=== PATIENT | male | born 1970 | race Caucasian/White ===

== ENCOUNTER 2016-10-30 20:19 | Observation (INO) | payer OTHER ==
[2016-10-30] MEDS ORDERED: ONDANSETRON 4 MG/2 ML VIAL IVP STA (20:47)
[2016-10-30] MEDS ORDERED: AMPICILLIN-SULBACTAM 3 GM in SODIUM CHLORIDE 0.9% 100 ML IVPB STA (20:47)
[2016-10-30] MEDS ORDERED: HYDROmorphone 1 MG/ML 1 ML SYRINGE IVP STA (20:47)
[2016-10-30] MEDS ORDERED: SODIUM CHLORIDE 0.9% 1,000 ML IV STA ×2 (20:47)
--- NOTE | 2016-10-30 20:59 | ED ---
General Adult HPI - General Chief complaint: Headache Stated complaint: PO Sinus surgery fever Time Seen by Provider: 10/30/16 20:38 Source: patient, family, RN notes reviewed Mode of arrival: ambulatory Limitations: no limitations - History of Present Illness Initial comments: Chief complaint and history of present illness this is a 46-year-old male here for complaint of the pain and fever. Yesterday he had nasal surgery with septoplasty and sinus surgery. He has nasal plugs in place. Reports that he had a fever last night several hours after the surgery. His not being able to control the pain with provided oral pain medications, current temperature 101.2. - Related Data Allergies Allergy/AdvReac Type Severity Reaction Status Date / Time No Known Allergies Allergy Verified 10/30/16 20:29 Review of Systems ROS Statement: Those systems with pertinent positive or pertinent negative responses have been documented in the HPI. Review of systems. Patient has frontal and maxillary sinus pain and pressure. Patient had surgery on his nose and sinuses 36 hours ago. Currently complaining of pain and fever. Unable to eat or drink. Nausea. No vomiting. All systems are reviewed. Patient denies any serious past medical problems. Sinus surgery just yesterday morning. Family history no cancers. Patient is nonsmoker nondrinker. Denies any ALLERGIES. ROS Other: All systems not noted in ROS Statement are negative. Past Medical History Past Medical History: No Reported History History of Any Multi-Drug Resistant Organisms: None Reported Additional Past Surgical History / Comment(s): sinus surgery Past Psychological History: No Psychological Hx Reported Smoking Status: Never smoker Past Alcohol Use History: None Reported Past Drug Use History: None Reported General Exam - General Exam Comments Initial Comments: General: The patient is awake and alert, moderate distress because of pain from the sinus surgery plus fever 101.2. Vital signs temp 11.2 pulse 103 respiratory rate 20 pulse ox 94% room air blood pressure 135/81. Elevated systolic due to pain Eye: Patient's eyes are tearing. Complaining of pain from recent nasal, sinus surgery. Ears, nose, mouth and throat: There are moist mucous membranes . Patient has nasal tampons in place after surgery. Small amount of blood still coming from the nares. Neck: The neck is supple, there is no tenderness Cardiovascular: Tachycardic heart rate 103.. No murmur, rub or gallop is appreciated. Respiratory: Lungs are clear to auscultation, respirations are non-labored, breath sounds are equal. No wheezes, stridor, rales, or rhonchi. Gastrointestinal: Poor appetite. Nausea no vomiting. No bowel movement. Back: No complaint of back pain. Musculoskeletal: Upper or lower extremities without complaint. Neurological: No complaint of any neuro deficits. Skin: Skin is warm and dry and no rashes or lesions are noted. Limitations: no limitations Course Vital Signs 10/30/16 20:24 Temperature 101.2 F H Pulse Rate 103 H Respiratory 20 Rate Blood Pressure 135/81 O2 Sat by Pulse 94 L Oximetry Medical Decision Making - Medical Decision Making Dr. Pagan came emergency room saw the patient. He removed the nasal tampons. Patient states she is feeling somewhat better. Awaiting final results of labs Labs show white count of 18 hemoglobin 15 hematocrit 43, flu is negative. Potassium is 4.2 BUN 10 creatinine 0.8 with a GFR greater than 60. Glucose 154 The patient will be admitted to the hospital for further management and IV antibiotics. - Lab Data Result diagrams: 10/30/16 21:00 10/30/16 21:00 Lab Results 10/30/16 10/30/16 10/30/16 Range/Units 21:00 21:00 21:00 WBC 18.0 H (3.8-10.6) k/uL RBC 4.64 (4.30-5.90) m/uL Hgb 15.1 (13.0-17.5) gm/dL Hct 43.6 (39.0-53.0) % MCV 94.0 (80.0-100.0) fL MCH 32.6 (25.0-35.0) pg MCHC 34.7 (31.0-37.0) g/dL RDW 12.9 (11.5-15.5) % Plt Count 188 (150-450) k/uL Neutrophils % 88 % Lymphocytes % 5 % Monocytes % 6 % Eosinophils % 1 % Basophils % 0 % Neutrophils # 15.8 H (1.3-7.7) k/uL Lymphocytes # 0.8 L (1.0-4.8) k/uL Monocytes # 1.1 H (0-1.0) k/uL Eosinophils # 0.1 (0-0.7) k/uL Basophils # 0.1 (0-0.2) k/uL Sodium 139 (137-145) mmol/L Potassium 4.2 (3.5-5.1) mmol/L Chloride 98 (98-107) mmol/L Carbon Dioxide 28 (22-30) mmol/L Anion Gap 13 mmol/L BUN 10 (9-20) mg/dL Creatinine 0.80 (0.66-1.25) mg/dL Est GFR (MDRD) Af Amer >60 (>60 ml/min/1.73 sqM) Est GFR (MDRD) Non-Af >60 (>60 ml/min/1.73 sqM) Glucose 154 H (74-99) mg/dL Calcium 9.7 (8.4-10.2) mg/dL Total Bilirubin 1.2 (0.2-1.3) mg/dL AST 19 (17-59) U/L ALT 39 (21-72) U/L Alkaline Phosphatase 92 (38-126) U/L Total Protein 8.1 (6.3-8.2) g/dL Albumin 4.7 (3.5-5.0) g/dL Influenza Type A RNA Not Detected (Not Detectd) Influenza Type B (PCR) Not Detected (Not Detectd) Disposition Clinical Impression: Sinusitis, acute Disposition: ADMITTED IP TO THIS HOSP Condition: Fair
[2016-10-30 21:35] LABS: Basophils # (A) 0.1 k/uL (0-0.2); Basophils % (A) 0 %; CH 32.5; CHCM 34.7; Eosinophils # (A) 0.1 k/uL (0-0.7); Eosinophils % (A) 1 %; HCT 43.6 % (39.0-53.0); HDW 2.44; HGB 15.1 gm/dL (13.0-17.5); Luc # (Auto) 0.14; Luc % (Auto) 1; Lymphocytes # (A) 0.8 k/uL (1.0-4.8); Lymphocytes % (A) 5 %; MCH 32.6 pg (25.0-35.0); MCHC 34.7 g/dL (31.0-37.0); Mean Platelet Volume 8.7; Monocytes # (A) 1.1 k/uL (0-1.0); Monocytes % (A) 6 %; Neutrophils # (A) 15.8 k/uL (1.3-7.7); Neutrophils % (A) 88 %; RBC 4.64 m/uL (4.30-5.90); RDW 12.9 % (11.5-15.5); WBC (Perox) 18.57
[2016-10-30 21:46] LABS: ALT 39 U/L (21-72); AST 19 U/L (17-59); Alkaline Phosphatase 92 U/L (38-126); Anion Gap 13 mmol/L; Blood Urea Nitrogen 10 mg/dL (9-20); Calcium 9.7 mg/dL (8.4-10.2); Carbon Dioxide 28 mmol/L (22-30); Chloride 98 mmol/L (98-107); Glucose 154 mg/dL (74-99); Non-African American GFR(MDRD) >60 (>60 ml/min/1.73 sqM); Potassium 4.2 mmol/L (3.5-5.1); Sodium 139 mmol/L (137-145); Total Bilirubin 1.2 mg/dL (0.2-1.3); Total Protein 8.1 g/dL (6.3-8.2)
[2016-10-30] MEDS ORDERED: NALOXONE 0.4 MG/ML 1 ML VIAL IV PRN (22:12)
[2016-10-30] MEDS ORDERED: ONDANSETRON 4 MG/2 ML VIAL IVP PRN (22:12)
[2016-10-30 22:23] VITALS: RESP 18
[2016-10-30] MEDS: ACETAMINOPHEN TAB 325 MG TAB PO PRN (22:33)
[2016-10-31] MEDS: HYDROmorphone 1 MG/ML 1 ML SYRINGE IV PRN ×2 (01:32→08:09)
[2016-10-31] MEDS: AMPICILLIN-SULBACTAM 1.5 GM in SODIUM CHLORIDE 0.9% 50 ML IVPB SCH ×2 (01:33→08:08)
[2016-10-31 02:11] VITALS: BMI 32.5
[2016-10-31 04:54] VITALS: TEMP 98.7
[2016-10-31 07:11] LABS: Basophils % (A) 0 %; CH 32.2; CHCM 33.3; Eosinophils % (A) 0 %; HCT 43.3 % (39.0-53.0); HDW 2.38; Luc # (Auto) 0.15; Luc % (Auto) 1; Lymphocytes % (A) 7 %; MCH 31.3 pg (25.0-35.0); MCHC 32.3 g/dL (31.0-37.0); Mean Platelet Volume 8.2; Monocytes # (A) 1.1 k/uL (0-1.0); Monocytes % (A) 8 %; Neutrophils # (A) 11.2 k/uL (1.3-7.7); Neutrophils % (A) 83 %; RBC 4.47 m/uL (4.30-5.90); RDW 12.9 % (11.5-15.5); WBC 13.5 k/uL (3.8-10.6); WBC (Perox) 13.57
[2016-10-31] MEDS: ACETAMINOPHEN TAB 325 MG TAB PO PRN (07:13)
[2016-10-31] MEDS: SODIUM CHLORIDE 0.9% 1,000 ML IV SCH ×2 (07:53→08:10)
[2016-10-31 08:16] VITALS: BP 150/77; PULSE 90
[2016-10-31] MEDS ORDERED: FAMOTIDINE 20 MG TAB PO SCH (09:00)
--- NOTE | 2016-10-31 09:01 | HP ---
DATE OF ADMISSION: 10/30/2016 CHIEF COMPLAINT: Fever. HISTORY: This is a 46-year-old white male, patient of Dr. Everett who yesterday morning underwent septoplasty and endoscopic sinus surgery. He was discharged around noon and by 130 or 2 o'clock he had a fever of around 102. This did improve during the day today but still has been running around 101 and the patient has been feeling quite miserable including nasal congestion and nasal and facial pain and body aches, although no chills or headache per se. He has had some bloody mucus drainage from the nose, but no evidence of CSF leakage or focal headaches. He has had no nausea. PAST MEDICAL HISTORY: Negative for heart, lung, liver disease kidney disease, diabetes mellitus, seizure disorder ( ). PAST SURGICAL HISTORY: As above. ALLERGIES: No known drug allergies. SOCIAL HISTORY: Does not smoke. Drinks alcohol minimally. FAMILY HISTORY: Noncontributory. REVIEW OF SYSTEMS: Noncontributory. PHYSICAL EXAMINATION: The patient is a well-developed, white male in no acute distress. He does have nasal pain and discomfort, but is overall comfortable, although he did have a dose of Dilaudid also. HEENT: Head normocephalic and atraumatic. EARS: Bilaterally canals are clear. Thyroid unremarkable and mobile. The nose shows mild bloody drainage from the nose, there is some mucous also, although no purulence. No evidence of CSF leakage. The nasal septal splints were removed and this gave the patient actually quite a lot of relief of the facial pain immediately. The nasal septum is healing well in the midline with no hematomas or perforations. In addition approximately one half of the NasoPore nasal dressings which is dissolvable was also suctioned. No purulence or active bleeding noted. Mouth and throat show no abnormal masses or lesions with no posterior bleeding. Neck is supple without adenopathy or tenderness. No nuchal rigidity. CHEST: Clear to auscultation bilaterally. HEART: Regular rate and rhythm with no murmurs or gallops appreciated. Soft, nontender. Extremities no gross deformities. NEUROLOGIC: Grossly intact. Labs: White blood cell count was elevated at 18,000, although he has ( ) steroids, also, did have influenza swab which intranasally which was negative. ASSESSMENT: Fever/pain postop septoplasty and endoscopic sinus surgery. PLAN: The patient will be admitted overnight for IV hydration and analgesics as well as IV antibiotics. We will monitor overnight. If not improving, would consider CT scan of the sinuses although does not appear to have any evidence of CSF leak or overt other evidence of meningitis. Suspect concomitant viral illness as his fever was within hours of surgery which would be unusual to have a surgical etiology for this. In any event, he does need be ( ) at least overnight and further disposition will be dependent on how he is feeling in the morning. I discuss his all with the patient and his girlfriend. They are agreeing with this plan. ( ) for the IV fluids and antibiotics and analgesics already. We will hold off on any saline rinses for now until at least Tuesday.
--- NOTE | 2016-10-31 09:52 | DS ---
DATE OF ADMISSION: 10/30/2016 DATE OF DISCHARGE: PRINCIPAL DIAGNOSIS: 1. Fever. 2. Postoperative pain. HISTORY: This is a 46-year-old little white male patient of Dr. Everett who 2 days ago underwent endoscopic sinus surgery and septoplasty. He had fever upwards of 102 within 2 hours of arriving home from surgery Tuesday afternoon. He was feeling quite miserable with nasal congestion, facial pressure and pain as well as the fever and body aches. He came to the hospital for evaluation yesterday and had elevated white count and a fever of 101.2. He is admitted for IV fluids, IV hydration and has improved. His white count is 13,000 now. It was felt that part of his white blood count may have been steroid-induced although obviously he did have fever also. His influenza nasal swabs were negative. He did have his nasal septal splints removed in the ER. He is much better today. His chief complaint today is nasal congestion as we have restricted nasal nose blowing. He has no facial pain or pressure, headache or nausea. His body aches also have improved. He is afebrile today with stable vital signs overall. PHYSICAL EXAM: GENERAL: The patient is alert and awake and conversant. He is in no acute distress. Ears show the canals are clear. Tympanic membranes unremarkable and mobile. The nose shows mucoid drainage in the nose bilaterally with no bleeding. Septum to the midline. No purulence. No evidence of CSF leak. Mouth and throat show blood posteriorly. Neck is supple without adenopathy or tenderness. The patient will be discharged to home and he is in agreement with this. Will still have him rest today with no strenuous activities. We will start on saline rinses and I did bring him a saline rinse bottle with saline packets and a recipe for the saline for this saline, salt and baking soda mixture to be used 5 to 6 times a day. He will continue his antibiotics at home which is Augmentin and he has this already, as well as [place] as well as some low-dose steroids. He will still follow up tomorrow in the office for recheck as scheduled. He is to call if he has questions in the meantime such headache or and thin nasal drainage. I reviewed all this with him today.
== END 2016-10-31 12:35 | disposition home or self-care (01) ==
LOC: EC 20:19 → 3OBS 22:12
PROVIDERS: ADMIT Otolaryngology; ATTEND Otolaryngology
DX: R50.9 Fever, unspecified (principal); G89.18 Other acute postprocedural pain; G50.1 Atypical facial pain; J01.90 Acute sinusitis, unspecified
CPT/HCPCS: 96365; 96361; 96375 ×2; 99284; 36415; 80053; 85025 ×2; 87040; 87077; 87186; 87502; G0378 ×2; J2405; J1170 ×2; J0295 ×2; 96366; 96376

== ENCOUNTER 2019-09-12 21:25 | Emergency (ER) | payer OTHER ==
[2019-09-12 21:31] VITALS: TEMP 99.1
--- NOTE | 2019-09-12 21:51 | ED ---
Lower Extremity Injury HPI - General Chief Complaint: Extremity Injury, Lower Stated Complaint: left ankle pain Time Seen by Provider: 09/12/19 21:36 Source: patient Mode of arrival: wheelchair Limitations: no limitations - History of Present Illness Initial Comments: This patient is a 49-year-old man who presents to be evaluated for what he suspects is an Achilles tendon injury. The patient states that he had been playing basketball. He states that he attempts step forcefully off his left foot and felt a pop just above his ankle. He states that he was then not able to extend the ankle. There is pain with weightbearing. Patient denies other injury. No pain into the foot area no pain into the knee MD Complaint: ankle injury Onset/Timin -: hour(s) Injury: Ankle: Left Place: other Improves With: nothing Worsens With: weight bearing, palpation Context: running Associated Symptoms: snap/pop sensation - Related Data Home Medications Medication Instructions Recorded Confirmed Amoxicillin/Potassium Clav 1 tab PO BID 10/31/16 10/31/16 [Augmentin 875-125 Tablet] oxyCODONE-APAP 5-325MG [Percocet 1 tab PO Q6HR PRN 10/31/16 10/31/16 5-325 mg] oxyCODONE-APAP 5-325MG [Percocet 2 tab PO Q6HR PRN 10/31/16 10/31/16 5-325 mg] predniSONE [Deltasone] 20 mg PO Q48H 10/31/16 10/31/16 Previous Rx's Medication Instructions Recorded Hydrocodone/Acetaminophen [[place] 1 each PO Q6HR PRN #15 tab 09/12/19 5-325] Ibuprofen 800 mg PO TID #20 tablet 09/12/19 Allergies Allergy/AdvReac Type Severity Reaction Status Date / Time No Known Allergies Allergy Verified 09/12/19 21:31 Review of Systems ROS Statement: Those systems with pertinent positive or pertinent negative responses have been documented in the HPI. ROS Other: All systems not noted in ROS Statement are negative. Constitutional: Denies: weakness Musculoskeletal: Reports: as per HPI Skin: Denies: lesions Neurological: Denies: weakness, numbness, paresthesias Past Medical History Past Medical History: No Reported History History of Any Multi-Drug Resistant Organisms: None Reported Additional Past Surgical History / Comment(s): sinus surgery Past Anesthesia/Blood Transfusion Reactions: No Reported Reaction Past Psychological History: No Psychological Hx Reported Smoking Status: Never smoker Past Alcohol Use History: None Reported Past Drug Use History: None Reported General Exam Limitations: no limitations General appearance: alert, in no apparent distress Cardiovascular Exam: Present: other (Dorsalis pedis pulse normal in the left foot and capillary refill normal.) Extremities exam: Present: tenderness (Patient has tenderness to palpation over the distal Achilles tendon. There does appear to be deformity. Martinez test is positive.), normal capillary refill. Absent: joint swelling Neurological exam: Present: alert, other (Sensory and motor function throughout the foot is normal). Absent: motor sensory deficit Course Vital Signs 09/12/19 21:28 Temperature 99.1 F Pulse Rate 87 Respiratory 20 Rate Blood Pressure 122/80 Medical Decision Making - Medical Decision Making Patient's 49-year-old man with Achilles tendon injury. He does have an orthopedic surgeon, he sees Dr. Hagen. The patient is splinted, made nonweightbearing, and we discussed appropriate further care and follow-up. Disposition Clinical Impression: Achilles rupture, left Disposition: HOME SELF-CARE Condition: Good Instructions (If sedation given, give patient instructions): Achilles Tendon Rupture (ED) Prescriptions: Ibuprofen 800 mg PO TID #20 tablet Hydrocodone/Acetaminophen [[place] 5-325] 1 each PO Q6HR PRN #15 tab PRN Reason: Pain Is patient prescribed a controlled substance at d/c from ED?: Yes When asked, does pt state using other controlled substances?: No If prescribed controlled substance>3 days was MAPS reviewed?: Prescribed <3 Days If opioid is for acute pain is fill amount 7 days or less?: Yes If Rx opioid, was Start Talking consent form obtained?: Yes Referrals: Dewayne Dawkins MD [Primary Care Provider] - 1-2 days Bonifacio Hagen DO [Doctor of Osteopathic Medicine] - 1-2 days
[2019-09-12] MEDS ORDERED: IBUPROFEN 400 MG TAB PO STA (22:04)
[2019-09-12] MEDS ORDERED: HYDROcodone/APAP 7.5-325MG 1 EACH TAB PO ONE (22:04)
--- NOTE | 2019-09-12 22:41 | XR ---
EXAMINATION TYPE: XR ankle complete LT DATE OF EXAM: 09/12/2019 COMPARISON: NONE HISTORY: Ankle pain TECHNIQUE: 3 views FINDINGS: Ankle mortise is anatomic. I see no fracture nor dislocation. Joint spaces are normal. IMPRESSION: Negative left ankle exam.
[2019-09-12 23:18] VITALS: BP 118/74; PULSE 69; RESP 17
--- NOTE | 2019-09-17 05:37 | CDI ---
Dear Zach Kellogg MD: Please do addendum type of splint placed. Thank you, Oumar Garcia, Director Of Field Sales. If you have any questions, please contact Commissary Worker at [phone]. SAMIAD
== END 2019-09-12 23:22 | disposition home or self-care (01) ==
LOC: EC 21:25
DX: S86.012A Strain of left Achilles tendon, initial encounter (principal); X50.9XXA Other and unspecified overexertion or strenuous movements or postures, initial encounter; Y93.67 Activity, basketball; Y92.89 Other specified places as the place of occurrence of the external cause
CPT/HCPCS: 29515; 99283

== ENCOUNTER 2019-10-02 12:06 | Inpatient (IN) | payer OTHER ==
[2019-10-02] MEDS ORDERED: ASPIRIN 81 MG PO STA (12:25)
[2019-10-02] MEDS ORDERED: SODIUM CHLORIDE 0.9% 1,000 ML IV STA (12:25)
[2019-10-02] MEDS ORDERED: NITROGLYCERIN OINT 1 INCH/GM PACKET TOPICAL STA (12:25)
--- NOTE | 2019-10-02 12:31 | ED ---
General Adult HPI - General Chief complaint: Shortness of Breath Stated complaint: Chest pain Time Seen by Provider: 10/02/19 12:12 Source: patient, RN notes reviewed Mode of arrival: wheelchair Limitations: no limitations - History of Present Illness Initial comments: Patient is a pleasant 49-year-old male presenting to the emergency Department with chest discomfort. Onset of symptoms was yesterday evening. Symptoms were sharp and severe right side of the anterior chest and lasted 40-60 minutes. Symptoms did improve with Motrin. Symptoms did improve with upright position. Symptoms worsen with positions and deep breaths. Patient states there may be some very mild associated shortness of breath. Patient states since that time discomfort has been mild and is currently rated 3/10. Patient states symptoms started to worsen again an hour ago however again improve with some Motrin. Patient does complain of some discomfort left calf however did have recent Achilles rupture. Patient was in cast however now is in a walking boot. Patient states there may have been some swelling recently. - Related Data Home Medications Medication Instructions Recorded Confirmed Amoxicillin/Potassium Clav 1 tab PO BID 10/31/16 10/31/16 [Augmentin 875-125 Tablet] oxyCODONE-APAP 5-325MG [Percocet 1 tab PO Q6HR PRN 10/31/16 10/31/16 5-325 mg] oxyCODONE-APAP 5-325MG [Percocet 2 tab PO Q6HR PRN 10/31/16 10/31/16 5-325 mg] predniSONE [Deltasone] 20 mg PO Q48H 10/31/16 10/31/16 Previous Rx's Medication Instructions Recorded Hydrocodone/Acetaminophen [[place] 1 each PO Q6HR PRN #15 tab 09/12/19 5-325] Ibuprofen 800 mg PO TID #20 tablet 09/12/19 Allergies Allergy/AdvReac Type Severity Reaction Status Date / Time No Known Allergies Allergy Verified 10/02/19 12:12 Review of Systems ROS Statement: Those systems with pertinent positive or pertinent negative responses have been documented in the HPI. ROS Other: All systems not noted in ROS Statement are negative. Constitutional: Denies: fever Eyes: Denies: eye pain ENT: Denies: ear pain Respiratory: Reports: as per HPI Cardiovascular: Reports: chest pain Endocrine: Denies: fatigue Gastrointestinal: Denies: abdominal pain Genitourinary: Denies: dysuria Musculoskeletal: Denies: back pain Skin: Denies: rash Neurological: Denies: weakness Past Medical History Past Medical History: No Reported History History of Any Multi-Drug Resistant Organisms: None Reported Additional Past Surgical History / Comment(s): sinus surgery Past Anesthesia/Blood Transfusion Reactions: No Reported Reaction Past Psychological History: No Psychological Hx Reported Smoking Status: Never smoker Past Alcohol Use History: None Reported Past Drug Use History: None Reported General Exam Limitations: no limitations General appearance: alert, in no apparent distress Head exam: Present: normocephalic Eye exam: Present: normal appearance Neck exam: Present: normal inspection Respiratory exam: Present: normal lung sounds bilaterally. Absent: chest wall tenderness Cardiovascular Exam: Present: bradycardia Expanded Peripheral pulses: 2+: Radial (R), Radial (L), Femoral (R), Femoral (L) GI/Abdominal exam: Present: soft. Absent: distended, tenderness Extremities exam: Present: calf tenderness (Left-sided) Back exam: Present: normal inspection Neurological exam: Present: alert Psychiatric exam: Present: normal affect, normal mood Skin exam: Present: normal color Course Vital Signs 10/02/19 10/02/19 12:08 12:50 Temperature 98.2 F 97.8 F Pulse Rate 63 62 Respiratory 20 16 Rate Blood Pressure 173/70 136/80 O2 Sat by Pulse 96 96 Oximetry EKG Findings - EKG Comments: EKG Findings:: Sinus bradycardia 56. MA 166. QRS 96. QT 408. QTC 393. Normal axis. Normal QRS. Nonspecific ST in lead III. Medical Decision Making - Medical Decision Making Patient reevaluated and updated. Case also discussed with Dr. pichardo, who will admit covering for Dr. Dawkins. - Lab Data Result diagrams: 10/02/19 12:33 10/02/19 12:33 Lab Results 10/02/19 10/02/19 10/02/19 Range/Units 12:33 12:33 12:33 WBC 8.4 (3.8-10.6) k/uL RBC 4.48 (4.30-5.90) m/uL Hgb 14.4 (13.0-17.5) gm/dL Hct 41.9 (39.0-53.0) % MCV 93.4 (80.0-100.0) fL MCH 32.0 (25.0-35.0) pg MCHC 34.3 (31.0-37.0) g/dL RDW 11.9 (11.5-15.5) % Plt Count 211 (150-450) k/uL Neutrophils % 74 % Lymphocytes % 15 % Monocytes % 7 % Eosinophils % 2 % Basophils % 1 % Neutrophils # 6.2 (1.3-7.7) k/uL Lymphocytes # 1.3 (1.0-4.8) k/uL Monocytes # 0.6 (0-1.0) k/uL Eosinophils # 0.1 (0-0.7) k/uL Basophils # 0.1 (0-0.2) k/uL PT 10.0 (9.0-12.0) sec INR 1.0 (<1.2) APTT 24.6 (22.0-30.0) sec Sodium 141 (137-145) mmol/L Potassium 4.1 (3.5-5.1) mmol/L Chloride 104 (98-107) mmol/L Carbon Dioxide 27 (22-30) mmol/L Anion Gap 10 mmol/L BUN 16 (9-20) mg/dL Creatinine 0.86 (0.66-1.25) mg/dL Est GFR (CKD-EPI)AfAm >90 (>60 ml/min/1.73 sqM) Est GFR (CKD-EPI)NonAf >90 (>60 ml/min/1.73 sqM) Glucose 113 H (74-99) mg/dL Calcium 9.6 (8.4-10.2) mg/dL Magnesium 2.1 (1.6-2.3) mg/dL Total Bilirubin 0.7 (0.2-1.3) mg/dL AST 32 (17-59) U/L ALT 45 (4-49) U/L Alkaline Phosphatase 84 (38-126) U/L Total Protein 7.5 (6.3-8.2) g/dL Albumin 4.4 (3.5-5.0) g/dL - Radiology Data Radiology results: report reviewed (Computed tomography scan the chest is somewhat suboptimal. There is bilateral pulmonary emboli, no right strain. This was discussed with radiologist who said no central emboli.) Critical Care Time Critical Care Time: Yes Total Critical Care Time: 33 Disposition Clinical Impression: Pulmonary embolism Disposition: ADMITTED IP TO THIS HOSP Condition: Serious Is patient prescribed a controlled substance at d/c from ED?: No Referrals: Dewayne Dawkins MD [Primary Care Provider] - 1-2 days Decision Time: 13:19
[2019-10-02 12:46] LABS: Basophils # (A) 0.1 k/uL (0-0.2); Basophils % (A) 1 %; Eosinophils # (A) 0.1 k/uL (0-0.7); Eosinophils % (A) 2 %; HCT 41.9 % (39.0-53.0); HGB 14.4 gm/dL (13.0-17.5); Lymphocytes # (A) 1.3 k/uL (1.0-4.8); Lymphocytes % (A) 15 %; MCHC 34.3 g/dL (31.0-37.0); MCV 93.4 fL (80.0-100.0); Mean Platelet Volume 9.5; Monocytes # (A) 0.6 k/uL (0-1.0); Monocytes % (A) 7 %; Neutrophils # (A) 6.2 k/uL (1.3-7.7); Neutrophils % (A) 74 %; Platelet Count 211 k/uL (150-450); RBC 4.48 m/uL (4.30-5.90); RDW 11.9 % (11.5-15.5); WBC 8.4 k/uL (3.8-10.6)
[2019-10-02 12:54] LABS: Partial Thromboplastin Time 24.6 sec (22.0-30.0)
[2019-10-02 12:58] LABS: ALT 45 U/L (4-49); AST 32 U/L (17-59); African American GFR (CKD) >90 (>60 ml/min/1.73 sqM); Albumin 4.4 g/dL (3.5-5.0); Alkaline Phosphatase 84 U/L (38-126); Anion Gap 10 mmol/L; Blood Urea Nitrogen 16 mg/dL (9-20); Calcium 9.6 mg/dL (8.4-10.2); Carbon Dioxide 27 mmol/L (22-30); Chloride 104 mmol/L (98-107); Glucose 113 mg/dL (74-99); Magnesium 2.1 mg/dL (1.6-2.3); Non-African American GFR(CKD) >90 (>60 ml/min/1.73 sqM); Potassium 4.1 mmol/L (3.5-5.1); Sodium 141 mmol/L (137-145); Total Bilirubin 0.7 mg/dL (0.2-1.3); Total Protein 7.5 g/dL (6.3-8.2)
--- NOTE | 2019-10-02 13:11 | CT ---
EXAMINATION TYPE: CT angio chest DATE OF EXAM: 10/02/2019 COMPARISON: NONE HISTORY: right side chest pain CT DLP: 602.9 mGycm. Automated Exposure Control for Dose Reduction was Utilized. CONTRAST: CTA scan of the thorax is performed with IV Contrast, patient injected with 100 mL of Isovue 300, pul monary embolism protocol. MIP Images are created on CT scanner and reviewed. FINDINGS: LUNGS: Low lung volumes with slightly elevated right hemidiaphragm. Respiratory motion artifact degra dation is present. Tiny right greater than left pleural effusions. Focal consolidation lateral aspect right middle lobe axial image 71. No suspicious nodules or masses. MEDIASTINUM: There is suboptimal study with heterogeneity near equal contrast in the right and left h eart systems. There is small segmental pulmonary emboli confirmed left upper lobe axial image 41 for reference. Additional right upper lobe pulmonary emboli seen on coronal image 97 distal lobar level with segmental extension. Suspect some additional smaller segmental pulmonary emboli. There are no gr eater than 1 cm hilar or mediastinal lymph nodes. No cardiomegaly or pericardial effusion is seen. No right ventricular dilatation noted. OTHER: Nonspecific 1.2 cm right adrenal mass axial image 132. Asymmetric left-sided gynecomastia. IMPRESSION: 1. Suboptimal study with bilateral pulmonary emboli, no CTA evidence for right ventricular strain. 2. Low lung volumes with slightly elevated right hemidiaphragm, tiny right greater than left pleural effusions. Focal infiltrate lateral aspect right middle lobe.
[2019-10-02] MEDS ORDERED: HEPARIN SODIUM,PORCINE 10,000 UNIT/ML 1 ML VIAL IV ONE (13:19)
[2019-10-02] MEDS ORDERED: NALOXONE 0.4 MG/ML 1 ML VIAL IV PRN (13:19)
[2019-10-02] MEDS ORDERED: ACETAMINOPHEN TAB 325 MG TAB PO PRN (13:19)
[2019-10-02] MEDS ORDERED: HEPARIN SODIUM,PORCINE 5,000 UNIT/ML 1 ML VIAL IV PRN (13:19)
[2019-10-02] MEDS ORDERED: IBUPROFEN 400 MG TAB PO PRN (13:19)
[2019-10-02] MEDS: HEPARIN SOD,PORK IN 0.45% NACL 25,000 UNIT in 0.45% NACL 1 250ML.BAG IV SCH (13:42)
--- NOTE | 2019-10-02 13:45 | P.HPIM ---
History of Present Illness This is a pleasant 49 years old male with no significant past medical history presents because of chest pain, Patient has recent history of left Achilles rupture/fracture 3 weeks ago, he took the cast off yesterday, and he is wearing Achilles tendon or slab however last night he developed chest pain, the right side, nonradiating severe lack 10/10 felt like dull and sharp precipitated by coughing and deep breathing, associated with dyspnea but no dizziness. Vital staple, patient is not tachycardic or hypoxic. Labs were unremarkable including CBC, INR, basic metabolic panel, liver enzymes, first troponin is negative with less than 0.012. Chest CTA: Bilateral pulmonary emboli with no evidence of right ventricular strain, suspect focal infiltrates in the right middle lobe Review of Systems CONSTITUTIONAL: No fever, no malaise, no fatigue. HEENT: No recent visual problems or hearing problems. Denied any sore throat. CARDIOVASCULAR: No orthopnea, PND, no palpitations, no syncope. PULMONARY: No shortness of breath, no cough, no hemoptysis. GASTROINTESTINAL: No diarrhea, no nausea, no vomiting, no abdominal pain. Normoactive bowel sounds. NEUROLOGICAL: No headaches, no weakness, no numbness. HEMATOLOGICAL: Denies any bleeding or petechiae. GENITOURINARY: Denies any burning micturition, frequency, or urgency. MUSCULOSKELETAL/RHEUMATOLOGICAL: Denies any joint pain, swelling, or any muscle pain. ENDOCRINE: Denies any polyuria or polydipsia. Past Medical History Past Medical History: No Reported History History of Any Multi-Drug Resistant Organisms: None Reported Additional Past Surgical History / Comment(s): sinus surgery Past Anesthesia/Blood Transfusion Reactions: No Reported Reaction Past Psychological History: No Psychological Hx Reported Smoking Status: Never smoker Past Alcohol Use History: None Reported Past Drug Use History: None Reported Medications and Allergies Home Medications Medication Instructions Recorded Confirmed Type Amoxicillin/Potassium Clav 1 tab PO BID 10/31/16 10/31/16 History [Augmentin 875-125 Tablet] oxyCODONE-APAP 5-325MG [Percocet 1 tab PO Q6HR PRN 10/31/16 10/31/16 History 5-325 mg] oxyCODONE-APAP 5-325MG [Percocet 2 tab PO Q6HR PRN 10/31/16 10/31/16 History 5-325 mg] predniSONE [Deltasone] 20 mg PO Q48H 10/31/16 10/31/16 History Hydrocodone/Acetaminophen [[place] 1 each PO Q6HR PRN #15 tab 09/12/19 Rx 5-325] Ibuprofen 800 mg PO TID #20 tablet 09/12/19 Rx Allergies Allergy/AdvReac Type Severity Reaction Status Date / Time No Known Allergies Allergy Verified 10/02/19 12:12 Physical Exam Vitals: Vital Signs Temp Pulse Resp BP Pulse Ox 10/02/19 12:50 97.8 F 62 16 136/80 96 10/02/19 12:08 98.2 F 63 20 173/70 96 Intake and Output 10/01/19 10/02/19 10/02/19 22:59 06:59 14:59 Other: Weight 106.458 kg GENERAL: The patient is alert and oriented x3, not in any acute distress. Well developed, well nourished. HEENT: Pupils are round and equally reacting to light. EOMI. No scleral icterus. No conjunctival pallor. Normocephalic, atraumatic. No pharyngeal erythema. No thyromegaly. CARDIOVASCULAR: S1 and S2 present. No murmurs, rubs, or gallops. PULMONARY: Chest is clear to auscultation, no wheezing or crackles. ABDOMEN: Soft, nontender, nondistended, normoactive bowel sounds. No palpable organomegaly. MUSCULOSKELETAL: No joint swelling or deformity. -EXTREMITIES: No cyanosis, clubbing, or pedal edema. Left Achilles boot or slab NEUROLOGICAL: Gross neurological examination did not reveal any focal deficits. SKIN: No rashes. No petechiae Results CBC & Chem 7: 10/02/19 12:33 10/02/19 12:33 Labs: Abnormal Lab Results - Last 24 Hours (Table) 10/02/19 Range/Units 12:33 Glucose 113 H (74-99) mg/dL Assessment and Plan Assessment: Bilateral pulmonary emboli. Possible acute DVT recent history of left Achilles rupture/fracture 3 weeks ago, he took the cast off Plan: This is a pleasant 49 years old male who presents with bilateral PE. Check echocardiogram, continue with heparin drip, consult pulmonary service. Check ultrasound of the lower extremity Labs and medication were reviewed.. Continue same treatment. Continue with symptomatic treatment. Resume home medication. Monitor lytes and vitals. DVT and GI prophylaxis. Further recommendations of the clinical course of the patient DVT prophylaxis: heparin GI Prophylaxis: Ppi Prognosis is guarded
[2019-10-02] MEDS: PANTOPRAZOLE 40 MG TABLET PO SCH (13:46)
--- NOTE | 2019-10-02 13:49 | US ---
EXAMINATION TYPE: US venous doppler duplex LE LT DATE OF EXAM: 10/02/2019 1:35 PM COMPARISON: NONE CLINICAL HISTORY: Leg pain. known PE recent abdominal CT. SIDE PERFORMED: Left TECHNIQUE: The lower extremity deep venous system is examined utilizing real time linear array sonog alex with graded compression, doppler sonography and color-flow sonography. VESSELS IMAGED: External Iliac Vein (EIV) Common Femoral Vein Deep Femoral Vein Greater Saphenous Vein * Femoral Vein Popliteal Vein Small Saphenous Vein * Proximal Calf Veins (* superficial vessels) Left Leg: Positive for DVT There is thrombus seen in left pop vein through proximal calf veins, with partial flow and compressib ility. Grayscale, color doppler, spectral doppler imaging performed of the deep veins of the left lower extr emity. In the proximal popliteal vein there is lumen expansion with hyperechoic material and noncompr essibility with absent color flow. IMPRESSION: There is occlusive acute thrombus beginning proximal popliteal vein extending through the posterior tibial veins in the left lower extremity.
[2019-10-02] MEDS: SODIUM CHLORIDE 0.9% 1,000 ML IV SCH (15:32)
--- NOTE | 2019-10-02 19:37 | ECHOF ---
Referral Reason:Rule out heart disease MEASUREMENTS -------- HEIGHT: 175.3 cm WEIGHT: 106.1 kg BP: RVIDd: 3.4 cm (< 3.3) IVSd: 1.0 cm (0.6 - 1.1) LVIDd: 5.0 cm (3.9 - 5.3) LVPWd: 0.9 cm (0.6 - 1.1) IVSs: 1.3 cm LVIDs: 3.1 cm LVPWs: 1.5 cm LA Diam: 4.0 cm (2.7 - 3.8) Ao Diam: 3.7 cm (2.0 - 3.7) AV Cusp: 2.5 cm (1.5 - 2.6) LA Diam: 4.3 cm (2.7 - 3.8) MV EXCURSION: 22.863 mm (> 18.000) MV EF SLOPE: 135 mm/s (70 - 150) EPSS: 0.7 cm MV E Nader: 0.49 m/s MV DecT: 179 ms MV A Nader: 0.48 m/s MV E/A Ratio: 1.03 RAP: 5.00 mmHg RVSP: 8.72 mmHg FINDINGS -------- Sinus rhythm. This was a techncally difficult study with suboptimal views, , Definity utilized for enhancement of i mages. The left ventricular size is normal. Overall left ventricular systolic function is normal with, an EF between 55 - 60 %. The right ventricle is mildly enlarged. The left atrial size is normal. The right atrial size is normal. Lumason used The aortic valve is trileaflet, and appears structurally normal. No aortic stenosis or regurgitation. Mild mitral annular calcification present. Mild mitral regurgitation is present. Mild tricuspid regurgitation present. Right ventricular systolic pressure is normal at < 35 mmHg. There is no evidence of pulmonary hypertension. The pulmonic valve was not well visualized. The aortic root size is normal. There is no pericardial effusion. CONCLUSIONS -------- 1. Sinus rhythm. 2. This was a techncally difficult study with suboptimal views, , Definity utilized for enhancement o f images. 3. The left ventricular size is normal. 4. Overall left ventricular systolic function is normal with, an EF between 55 - 60 %. 5. The right ventricle is mildly enlarged. 6. The left atrial size is normal. 7. The right atrial size is normal. 8. Lumason used 9. The aortic valve is trileaflet, and appears structurally normal. No aortic stenosis or regurgitati on. 10. Mild mitral annular calcification present. 11. Mild mitral regurgitation is present. 12. Mild tricuspid regurgitation present. 13. Right ventricular systolic pressure is normal at < 35 mmHg. 14. There is no evidence of pulmonary hypertension. 15. The pulmonic valve was not well visualized. 16. The aortic root size is normal. 17. There is no pericardial effusion. SLOPE HOIST OPERATOR: Varsha Pabon RDCS
[2019-10-03 04:00] LABS: Basophils # (A) 0.1 k/uL (0-0.2); Basophils % (A) 1 %; Eosinophils # (A) 0.2 k/uL (0-0.7); Eosinophils % (A) 2 %; HCT 39.8 % (39.0-53.0); HGB 13.4 gm/dL (13.0-17.5); Lymphocytes # (A) 1.8 k/uL (1.0-4.8); Lymphocytes % (A) 22 %; MCH 32.1 pg (25.0-35.0); MCHC 33.7 g/dL (31.0-37.0); MCV 95.2 fL (80.0-100.0); Mean Platelet Volume 9.5; Monocytes # (A) 0.6 k/uL (0-1.0); Monocytes % (A) 7 %; Neutrophils # (A) 5.4 k/uL (1.3-7.7); Neutrophils % (A) 67 %; Platelet Count 186 k/uL (150-450); RBC 4.18 m/uL (4.30-5.90); RDW 12.1 % (11.5-15.5)
[2019-10-03 04:13] LABS: Partial Thromboplastin Time 83.4 sec (22.0-30.0); Prothrombin Time 10.6 sec (9.0-12.0)
[2019-10-03] MEDS: HEPARIN SOD,PORK IN 0.45% NACL 25,000 UNIT in 0.45% NACL 1 250ML.BAG IV SCH (04:23)
[2019-10-03] MEDS: PANTOPRAZOLE 40 MG TABLET PO SCH (06:30)
[2019-10-03] MEDS ORDERED: HYDROcodone/APAP 5-325MG 1 EACH TAB PO PRN (09:31)
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
[2019-10-03] MEDS ORDERED: APIXABAN 5 MG TAB PO SCH (11:30)
--- NOTE | 2019-10-03 13:35 | P.CNPUL ---
History of Present Illness Consult date: 10/03/19 Requesting physician: Ho Cleary Reason for consult: dyspnea, chest pain Chief complaint: Pleuritic chest pain, acute pulmonary emboli History of present illness: 49-year-old white male patient with no significant medical history, with recent left Achilles tendon injury during a game of basketball, who presented to the hospital on 10/02/2019 for evaluation of sharp chest discomfort that started on Tuesday night. Patient's left leg had been in the cast for the last 2 weeks, and it was removed on Tuesday morning. he had been feeling some tenderness and swelling in his left posterior knee area. On Tuesday night he started experiencing sharp and achy sensation in his chest that was accompanied by dyspnea, patient described the discomfort as very severe in intensity, could not get a very deep breath, he took Motrin, and Percocet, and he was able to go to bed that night, the next morning his chest pain resumed and continued to intensify. He called his who brought him to the emergency department for evaluation with a suspicion of pulmonary embolus. She denies any history of f amily history of PE or DVT, denies any history of clotting disorder. CTA chest was suboptimal, however did show bilateral pulmonary emboli with no CT evidence for right ventricular strain, showed low lung volumes with slightly elevated right hemidiaphragm and tiny right greater than left pleural effusion. As of focal infiltrate in the lateral aspect of the right middle lobe. Lab work was reviewed showing CBC and coagulation profile normal limits, renal profile and electrolytes were within normal limits, troponins were less than 0.0123, venous Doppler study showed positive DVT in the left popliteal vein through proximal calf veins with partial flow and compressibility. Echocardiogram was reviewed showing normal left ventricular systolic function with an EF of 55-60%, no evidence of pulmonary hypertension, mild MR and mild TR, no aortic stenosis or regurgitation, no pericardial effusion. Patient remained hemodynamically stable, room air pulse ox is 94%. EKG showed sinus bradycardia, with possibility of anterior infarct of undetermined age. Patient was started on heparin infusion, was seeing the patient in evaluation for acute pulmonary embolism which seems to be provoked. Patient has been approved for [place] which we will start today Review of Systems All systems: negative Constitutional: Denies chills, Denies fever Eyes: denies blurred vision, denies pain Ears, nose, mouth and throat: Denies headache, Denies sore throat Cardiovascular: Reports chest pain, Reports orthopnea, Denies shortness of breath Respiratory: Reports dyspnea, Denies cough Gastrointestinal: Denies abdominal pain, Denies diarrhea, Denies nausea, Denies vomiting Musculoskeletal: Denies myalgias Musculoskeletal: left: ankle pain, ankle swelling, knee pain, knee swelling Integumentary: Denies pruritus, Denies rash Neurological: Denies numbness, Denies weakness Psychiatric: Denies anxiety, Denies depression Endocrine: Denies fatigue, Denies weight change Past Medical History Past Medical History: No Reported History Additional Past Medical History / Comment(s): Recent L achilles tendon rupture- was casted and now in walking boot. History of Any Multi-Drug Resistant Organisms: None Reported Past Surgical History: Appendectomy Additional Past Surgical History / Comment(s): sinus surgery Past Anesthesia/Blood Transfusion Reactions: No Reported Reaction Smoking Status: Never smoker - Past Family History Father Family Medical History: CVA/TIA Additional Family Medical History / Comment(s): Father had mesothelioma. He lived to be 84 yrs old. Mother Family Medical History: Cancer Additional Family Medical History / Comment(s): Mother has CLL. She is 71 yrs old. Medications and Allergies Home Medications Medication Instructions Recorded Confirmed Type Ibuprofen 800 mg PO TID #20 tablet 09/12/19 10/02/19 Rx Hydrocodone/Acetaminophen [[place] 1 tab PO Q6HR PRN 10/02/19 10/02/19 History 5-325] Apixaban [Eliquis] 5 mg PO DIRECTED #60 tab 10/03/19 Rx Allergies Allergy/AdvReac Type Severity Reaction Status Date / Time No Known Allergies Allergy Verified 10/02/19 14:45 Physical Exam Vitals: Vital Signs Temp Pulse Pulse Pulse Resp BP BP 10/03/19 12:00 98.1 F 71 17 128/80 10/03/19 09:45 61 17 10/03/19 08:00 98.1 F 61 17 119/71 10/03/19 03:25 98.2 F 55 L 16 104/58 10/02/19 23:30 98.4 F 59 L 18 114/61 10/02/19 20:15 98.6 F 75 18 120/64 10/02/19 16:26 60 16 10/02/19 15:41 98.0 F 60 16 124/73 10/02/19 14:11 97.8 F 60 18 128/79 Pulse Ox 10/03/19 12:00 94 L 10/03/19 09:45 10/03/19 08:00 94 L 10/03/19 03:25 96 10/02/19 23:30 95 10/02/19 20:15 95 10/02/19 16:26 10/02/19 15:41 95 10/02/19 14:11 96 Intake and Output 10/02/19 10/03/19 10/03/19 22:59 06:59 14:59 Intake Total 363.914 114.445 600 Output Total 100 Balance 363.914 14.445 600 Intake: Intake, IV Titration 123.914 114.445 Amount Heparin Sod,Pork in 0.45% 123.914 114.445 NaCl 25,000 unit In 0.45 % NaCl 1 250ml.bag @ 18 UNITS/KG/HR 19.162 mls/hr IV .Q13H3M [facility] Rx#: [id number] Oral 240 600 Output: Urine 100 Other: Voiding Method Toilet Toilet Toilet Urinal # Voids 1 1 Weight 107.6 kg GENERAL EXAM: Alert, very pleasant, 49-year-old white male with a room air pulse ox of 94% sitting in the recliner with his legs elevated, left leg is in the walking boot comfortable in no apparent distress. HEAD: Normocephalic/atraumatic. EYES: Normal reaction of pupils, equal size. Conjunctiva pink, sclera white. NOSE: Clear with pink turbinates. THROAT: No erythema or exudates. NECK: No masses, no JVD, no thyroid enlargement, no adenopathy. CHEST: No chest wall deformity. Symmetrical expansion. LUNGS: Equal air entry with no crackles, wheeze, rhonchi or dullness. CVS: Regular rate and rhythm, normal S1 and S2, no gallops, no murmurs, no rubs ABDOMEN: Soft, nontender. No hepatosplenomegaly, normal bowel sounds, no guarding or rigidity. EXTREMITIES: No clubbing, no edema, no cyanosis, 2+ pulses and upper and lower extremities. Mild swelling in his left calf, and some tenderness in the left posterior ankle area, but no warmth, no redness MUSCULOSKELETAL: Muscle strength and tone normal. SPINE: No scoliosis or deformity SKIN: No rashes CENTRAL NERVOUS SYSTEM: Alert and oriented -3. No focal deficits, tone is normal in all 4 extremities. PSYCHIATRIC: Alert and oriented -3. Appropriate affect. Intact judgment and insight. Results - Laboratory Findings CBC and BMP: 10/03/19 03:29 10/02/19 12:33 PT/INR, D-dimer PT 10.6 sec (9.0-12.0) 10/03/19 03:29 INR 1.0 (<1.2) 10/03/19 03:29 Abnormal lab findings: Abnormal Labs 10/02/19 10/02/19 10/03/19 12:33 19:11 03:29 RBC 4.18 L APTT 168.3 H* Glucose 113 H 10/03/19 10/03/19 03:29 10:10 RBC APTT 83.4 H 61.2 H Glucose - Diagnostic Findings CT scan - chest: report reviewed, image reviewed Assessment and Plan Plan: Assessment #1. Acute bilateral pulmonary emboli and left leg DVT, unprovoked event, related to recent left ankle injury #2. Recent left tendon injury #3. Lifetime nonsmoker Plan: Patient has been approved for Eliquis, which started today, we'll discontinue heparin drip, echocardiogram and CT chest results have been reviewed, no evidence of right ventricular strain, hemodynamically patient remains stable, maintaining stable oxygenation, still has some pleuritic chest discomfort, continue pain control. Denies any history of thromboembolic events, denies any clotting disorder this event was provoked, and patient will likely need 3 months anticoagulation. We'll continue to follow I performed a history & physical examination of the patient and discussed their management with my nurse practitioner, Selam Ramos. I reviewed the nurse practitioner's note and agree with the documented findings and plan of care. Lung sounds are positive for diminished breath sounds. The findings and the impression was discussed with the patient. I attest to the documentation by the nurse practitioner. Time with Patient: Greater than 30
--- NOTE | 2019-10-03 13:58 | CDI ---
Documentation Clarification Form Date: 10/03/2019 01:25:29 PM From: Hansa Tsai RN, CCDS Admit Date: 10/02/2019 01:20:00 PM Patient Name: Luca Ceballos Visit Number: [id number] Discharge Date: ATTENTION: The Clinical Documentation Specialists (CDI) and [facility] Coding Staff appreciate your assistance in clarifying documentation. Please respond to the clarification below the line at the bottom and electronically sign. The CDI & [facility] Coding staff will review the response and follow-up if needed. Please note: Queries are made part of the Legal Health Record. If you have any questions, please contact the author of this message via ITS. Dr. Teague Sheet Possible acute DVT is documented in your H/P on 10/02/19 and subsequent documentation. Please provide further specificity of the acute DVT. History/Risk Factors: Left Achilles rupture /fracture 3 weeks go (recent history); Clinical Indicators: 49-lorrie-old male who presents with chest pain, on the right side severe and sharp per ER assessment on 10/02/19. Chest CTA: Bilateral pulmonary emboli with no evidence of right ventricular strain. Venous Doppler lower extremity: Left leg: Positive for DVT. There is occlusive acute thrombus beginning proximal popliteal vein extending through the posterior tibial veins in the left lower extremity Vital Signs: (10/02/19at 12:08) 173/70 63 Treatment: Heparin IV drip Eliquis 10 PO BID In your professional opinion, can you please clarify location of Acute DVT? Left lower extremity, proximal popliteal vein extending through the posterior tibial veins. Other, please specify Unable to determine (Last Revision: November 2017) Left lower extremity, proximal popliteal vein extending through the posterior tibial veins. MTDD
[2019-10-03] MEDS: SODIUM CHLORIDE 0.9% 1,000 ML IV SCH (14:48)
[2019-10-03 16:25] VITALS: BP 113/69; PULSE 58; RESP 20; TEMP 98.2
== END 2019-10-03 17:20 | disposition home or self-care (01) | DRG 176 ==
LOC: EC 12:06 → 3SCARD 13:20
PROVIDERS: ADMIT Internal Medicine; ATTEND Internal Medicine
DX: I26.99 Other pulmonary embolism without acute cor pulmonale (principal); I82.4Z2 Acute embolism and thrombosis of unspecified deep veins of left distal lower extremity; I82.432 Acute embolism and thrombosis of left popliteal vein; Z79.52 Long term (current) use of systemic steroids; Z79.899 Other long term (current) drug therapy; Z90.49 Acquired absence of other specified parts of digestive tract; Z80.6 Family history of leukemia; Z80.9 Family history of malignant neoplasm, unspecified; Z82.3 Family history of stroke
CPT/HCPCS: 36415; 71275; 80053; 83735; 84484; 85025; 85610; 85730; 93005; 93306; 96361; 96365; 96376; 99291

== ENCOUNTER → 2020-02-25 | Outpatient (CLI) | payer OTHER ==
--- NOTE | 2020-02-25 09:42 | US ---
EXAMINATION TYPE: US venous doppler duplex LE LT DATE OF EXAM: 02/25/2020 8:33 AM COMPARISON: US 10/02/2019 CLINICAL HISTORY: 50-year-old male Z86.718 DVT. History of DVT, follow up SIDE PERFORMED: Left TECHNIQUE: The lower extremity deep venous system is examined utilizing real time linear array sonog alex with graded compression, doppler sonography and color-flow sonography. FINDINGS: VESSELS IMAGED: External Iliac Vein (EIV) Common Femoral Vein Deep Femoral Vein Greater Saphenous Vein * Femoral Vein Popliteal Vein Small Saphenous Vein * Proximal Calf Veins (* superficial vessels) Left Leg: Negative for DVT IMPRESSION: No evidence for DVT within the left lower extremity imaged from the groin to the upper calf. Clearanc e of the previously seen clot on 10/02/2019.
== END | disposition home or self-care (01) ==
LOC: RADUSWWP 08:07
PROVIDERS: ATTEND Internal Medicine
DX: Z86.718 Personal history of other venous thrombosis and embolism (principal)

== ENCOUNTER → 2024-01-12 | Outpatient (CLI) | payer BC, OTHER ==
[2024-01-12 14:17] LABS: Basophils # (A) 0.04 X 10*3/uL (0.00-0.10); Basophils % (A) 0.7 %; Eosinophils # (A) 0.14 X 10*3/uL (0.04-0.35); Eosinophils % (A) 2.4 %; HGB 15.1 g/dL (13.0-17.0); Lymphocytes # (A) 1.77 X 10*3/uL (0.90-5.00); Lymphocytes % (A) 30.8 %; MCH 32.3 pg (27.0-32.0); MCHC 33.6 g/dL (32.0-37.0); MCV 96.2 FL (80.0-97.0); Mean Platelet Volume 11.4 FL (9.5-12.2); Monocytes # (A) 0.49 X 10*3/uL (0.20-1.00); Monocytes % (A) 8.5 %; NRBC Per 100 WBC 0 X 10*3/uL (0.00-0.01); Neutrophils % (A) 57.4 %; Platelet Count 193 X 10*3/uL (140-440); RBC 4.68 X 10*6/uL (4.40-5.60); RDW 12.4 % (11.5-14.5); WBC 5.75 X 10*3/uL (4.50-10.00)
[2024-01-12 14:54] LABS: Chol/HDL Ratio 3.39 Ratio; LDL Cholesterol,Calculated 88.1 mg/dL (0.0-131.0)
[2024-01-12 14:55] LABS: ALT 31 U/L (10-49); AST 22 U/L (14-35); Albumin 4.7 g/dL (3.8-4.9); Albumin/Globulin Ratio 1.96 Ratio (1.60-3.17); Alkaline Phosphatase 78 U/L (41-126); BUN/Creat Ratio 19.56 Ratio (12.00-20.00); Blood Urea Nitrogen 17.6 mg/dL (9.0-27.0); Calcium 9.9 mg/dL (8.7-10.3); Carbon Dioxide 26.6 mmol/L (21.6-31.8); Chloride 106 mmol/L (96-109); Globulin 2.4 g/dL (1.6-3.3); Glucose 109 mg/dL (70-110); Potassium 4.1 mmol/L (3.5-5.5); Sodium 143 mmol/L (135-145); Total Bilirubin 0.9 mg/dL (0.3-1.2); Total Protein 7.1 g/dL (6.2-8.2)
== END | disposition home or self-care (01) ==
LOC: LABWHC1 07:01
PROVIDERS: ATTEND Internal Medicine
DX: Z00.00 Encounter for general adult medical examination without abnormal findings (principal); R73.9 Hyperglycemia, unspecified
CPT/HCPCS: 36415; 80053; 80061; 83036; 85025

== ENCOUNTER 2024-12-24 05:47 | Emergency (ER) | payer BC ==
[2024-12-24 05:56] VITALS: PULSE 68; RESP 18; TEMP 97.8
[2024-12-24 06:41] LABS: Basophils # (A) 0.05 10*3/uL (0.00-0.10); Basophils % (A) 0.6 %; Eosinophils # (A) 0.31 10*3/uL (0.04-0.35); Eosinophils % (A) 3.5 %; HCT 41.6 % (39.6-50.0); HGB 14.9 g/dL (13.0-17.0); Lymphocytes # (A) 1.67 10*3/uL (0.90-5.00); Lymphocytes % (A) 18.7 %; MCH 32.8 pg (27.0-32.0); MCHC 35.8 g/dL (32.0-37.0); MCV 91.6 fL (80.0-97.0); Mean Platelet Volume 11.5 fL (9.5-12.2); Monocytes # (A) 0.81 10*3/uL (0.20-1.00); Monocytes % (A) 9.1 %; Neutrophils # (A) 6.07 10*3/uL (1.80-7.70); Neutrophils % (A) 67.9 %; Platelet Count 173 10*3/uL (140-440); RBC 4.54 10*6/uL (4.40-5.60); WBC 8.93 10*3/uL (4.50-10.00)
[2024-12-24] MEDS: KETOROLAC 15 MG/ML 1 ML VIAL IVP STA (06:46)
[2024-12-24 06:53] LABS: Partial Thromboplastin Time 24.8 sec (22.0-30.0); Prothrombin Time 10.7 sec (10.0-12.5)
--- NOTE | 2024-12-24 06:58 | ED ---
Extremity Problem HPI - General Chief complaint: Extremity Problem,Nontraumatic Stated complaint: R Leg Pain, Possible Blood Clot Time Seen by Provider: 12/24/24 05:51 Source: patient, RN notes reviewed Mode of arrival: ambulatory Limitations: no limitations - History of Present Illness Initial comments: 54-year-old male presents emergency department chief complaint of right leg pain. Patient states that it has been bothersome for the last 1 week. Patient states that nothing really makes it feel better or feel worse. Patient states his concern is a possible DVT. Patient states that he had a DVT of his left leg with PE years ago after being splinted from having Achilles tendon injury. Patient denies any chest pain no shortness of breath. Denies any fevers or chills. - Related Data Previous Rx's Medication Instructions Recorded Apixaban [Eliquis] 5 mg PO DIRECTED #60 tab 10/03/19 HYDROcodone/APAP 5-325MG [[place] 1 each PO Q8HR PRN 3 Days #8 tab 10/03/19 5-325] Allergies Allergy/AdvReac Type Severity Reaction Status Date / Time No Known Allergies Allergy Verified 12/24/24 05:56 Review of Systems ROS Statement: Those systems with pertinent positive or pertinent negative responses have been documented in the HPI. ROS Other: All systems not noted in ROS Statement are negative. Past Medical History Past Medical History: Deep Vein Thrombosis (DVT), Pulmonary Embolus (PE) Additional Past Medical History / Comment(s): Recent L achilles tendon rupture- was casted and now in walking boot. DVT and PE in 2019 History of Any Multi-Drug Resistant Organisms: None Reported Past Surgical History: Appendectomy Additional Past Surgical History / Comment(s): sinus surgery Past Anesthesia/Blood Transfusion Reactions: No Reported Reaction Past Psychological History: No Psychological Hx Reported Smoking Status: Never smoker Past Alcohol Use History: None Reported Past Drug Use History: None Reported - Past Family History Father Family Medical History: CVA/TIA Additional Family Medical History / Comment(s): Father had mesothelioma. He lived to be 84 yrs old. Mother Family Medical History: Cancer Additional Family Medical History / Comment(s): Mother has CLL. She is 71 yrs old. General Exam Limitations: no limitations General appearance: alert, in no apparent distress Head exam: Present: atraumatic, normocephalic, normal inspection Eye exam: Present: normal appearance, PERRL, EOMI. Absent: scleral icterus, conjunctival injection, periorbital swelling ENT exam: Present: normal exam, mucous membranes moist Neck exam: Present: normal inspection, full ROM. Absent: tenderness, meningismus, lymphadenopathy Respiratory exam: Present: normal lung sounds bilaterally. Absent: respiratory distress, wheezes, rales, rhonchi, stridor Cardiovascular Exam: Present: regular rate, normal rhythm, normal heart sounds. Absent: systolic murmur, diastolic murmur, rubs, gallop, clicks Extremities exam: Present: calf tenderness, other (Pedal pulses equal bilaterally there is no erythema no swelling of the lower extremity) Course Vital Signs 12/24/24 05:51 Temperature 97.8 F Pulse Rate 68 Respiratory 18 Rate Blood Pressure 134/78 O2 Sat by Pulse 97 Oximetry Medical Decision Making - Medical Decision Making Was pt. sent in by a medical professional or institution (, PA, SYSTEM SUPPORT ADMINISTRATOR, urgent care, hospital, or jail...) When possible be specific @ -No Did you speak to anyone other than the patient for history (EMS, parent, family, police, friend...)? What history was obtained from this source @ -No Did you review nursing and triage notes (agree or disagree)? Why? @ -I reviewed and agree with nursing and triage notes Were old charts reviewed (outside hosp., previous admission, EMS record, old EKG, old radiological studies, urgent care reports/EKG's, jail records)? Report findings @ -No old charts were reviewed Differential Diagnosis (chest pain, altered mental status, abdominal pain women, abdominal pain men, vaginal bleeding, weakness, fever, dyspnea, syncope, headache, dizziness, GI bleed, back pain, seizure, CVA, palpatations, mental health, musculoskeletal)? @ -DVT, SVT, muscular strain, leg pain, radiculopathy EKG interpreted by me (3pts min.). @ -None X-rays interpreted by me (1pt min.). @ -None done CT interpreted by me (1pt min.). @ -None done U/S interpreted by me (1pt. min.). @ -Ultrasound was negative for DVT, there is some calcification with the muscular area of the right calf What testing was considered but not performed or refused? (CT, X-rays, U/S, labs)? Why? @ -None What meds were considered but not given or refused? Why? @ -None Did you discuss the management of the patient with other professionals (professionals i.e. , PA, SYSTEM SUPPORT ADMINISTRATOR, lab, RT, psych nurse, social secretary, front office spec, teacher, safety and security officer, special education case manager)? Give summary @ -No Was smoking cessation discussed for >3mins.? @ -No Was critical care preformed (if so, how long)? @ -No Were there social determinants of health that impacted care today? How? (Homelessness, low income, unemployed, alcoholism, drug addiction, transportation, low edu. Level, literacy, decrease access to med. care, fpc, rehab)? @ -No Was there de-escalation of care discussed even if they declined (Discuss DNR or withdrawal of care, Hospice)? DNR status @ -No What co-morbidities impacted this encounter? (DM, HTN, Smoking, COPD, CAD, Cancer, CVA, ARF, Chemo, Hep., AIDS, mental health diagnosis, sleep apnea, morbid obesity)? @ -None Was patient admitted / discharged? Hospital course, mention meds given and route, prescriptions, significant lab abnormalities, going to OR and other pertinent info. @ -Discharged patient presented for right calf pain ultrasound is negative for DVT there is a calcification with the muscle likely from trauma or injury. Patient will be discharged in stable condition return parameters rhonda. Undiagnosed new problem with uncertain prognosis? @ -No Drug Therapy requiring intensive monitoring for toxicity (Heparin, Nitro, Insulin, Cardizem)? @ -No Were any procedures done? @ -No Diagnosis/symptom? @ -Leg pain Acute, or Chronic, or Acute on Chronic? @ -Acute Uncomplicated (without systemic symptoms) or Complicated (systemic symptoms)? @ -Uncomplicated Side effects of treatment? @ -No Exacerbation, Progression, or Severe Exacerbation? @ -No Poses a threat to life or bodily function? How? (Chest pain, USA, ID, pneumonia, PE, COPD, DKA, ARF, appy, cholecystitis, CVA, Diverticulitis, Homicidal, Suicidal, threat to staff... and all critical care pts) @ -No - Lab Data Result diagrams: 12/24/24 06:09 12/24/24 06:09 Lab Results 12/24/24 12/24/2412/24/25 Range/Units 06:09 06:09 06:09 WBC 8.93 (4.50-10.00) 10*3/uL RBC 4.54 (4.40-5.60) 10*6/uL Hgb 14.9 (13.0-17.0) g/dL Hct 41.6 (39.6-50.0) % MCV 91.6 (80.0-97.0) fL MCH 32.8 H (27.0-32.0) pg MCHC 35.8 (32.0-37.0) g/dL Plt Count 173 (140-440) 10*3/uL MPV 11.5 (9.5-12.2) fL Immature Gran % (Auto) 0.2 % Neutrophils % 67.9 % Lymphocytes % 18.7 % Monocytes % 9.1 % Eosinophils % 3.5 % Basophils % 0.6 % Immature Gran # 0.02 (0.00-0.04) 10*3/uL Neutrophils # 6.07 (1.80-7.70) 10*3/uL Lymphocytes # 1.67 (0.90-5.00) 10*3/uL Monocytes # 0.81 (0.20-1.00) 10*3/uL Eosinophils # 0.31 (0.04-0.35) 10*3/uL Basophils # 0.05 (0.00-0.10) 10*3/uL PT 10.7 (10.0-12.5) sec INR 1.0 (<1.2) APTT 24.8 (22.0-30.0) sec Sodium 141 (137-145) mmol/L Potassium 4.0 (3.5-5.1) mmol/L Chloride 106 (98-107) mmol/L Carbon Dioxide 24 (22-30) mmol/L Anion Gap 11 mmol/L BUN 18 (9-20) mg/dL Creatinine 0.78 (0.66-1.25) mg/dL Est GFR (CKD-EPI)AfAm >90 (>60 ml/min/1.73 sqM) Est GFR (CKD-EPI)NonAf >90 (>60 ml/min/1.73 sqM) Glucose 116 H (74-99) mg/dL Calcium 9.5 (8.4-10.2) mg/dL Total Bilirubin 0.6 (0.2-1.3) mg/dL AST 26 (17-59) U/L ALT 41 (4-49) U/L Alkaline Phosphatase 67 (38-126) U/L Total Protein 7.2 (6.3-8.2) g/dL Albumin 4.4 (3.5-5.0) g/dL Disposition Clinical Impression: Right leg pain Disposition: HOME SELF-CARE Condition: Stable Instructions (If sedation given, give patient instructions): Leg Sprain (ED), Leg Pain (ED) Additional Instructions: Please return to the Emergency Department if symptoms worsen or any other concerns. Is patient prescribed a controlled substance at d/c from ED?: No Referrals: Aleks Castano MD [Primary Care Provider] - 1-2 days Time of Disposition: 07:58
[2024-12-24 07:01] LABS: ALT 41 U/L (4-49); AST 26 U/L (17-59); African American GFR (CKD) >90 (>60 ml/min/1.73 sqM); Albumin 4.4 g/dL (3.5-5.0); Alkaline Phosphatase 67 U/L (38-126); Anion Gap 11 mmol/L; Blood Urea Nitrogen 18 mg/dL (9-20); Calcium 9.5 mg/dL (8.4-10.2); Carbon Dioxide 24 mmol/L (22-30); Chloride 106 mmol/L (98-107); Glucose 116 mg/dL (74-99); Non-African American GFR(CKD) >90 (>60 ml/min/1.73 sqM); Sodium 141 mmol/L (137-145); Total Bilirubin 0.6 mg/dL (0.2-1.3); Total Protein 7.2 g/dL (6.3-8.2)
--- NOTE | 2024-12-24 07:41 | US ---
EXAMINATION TYPE: US venous doppler duplex LE RT DATE OF EXAM: 12/24/2024 7:29 AM COMPARISON: NONE CLINICAL INDICATION: Male, 54 years old with history of pain; post calf pain x 1 week Hx left leg DVT 2019 after achilles surgery, Pain TECHNIQUE: The lower extremity deep venous system is examined utilizing real time linear array sonog alex with graded compression, color doppler sonography, and spectral doppler. SIDE PERFORMED: Right FINDINGS: VESSELS IMAGED: Common Femoral Vein Deep Femoral Vein Greater Saphenous Vein * Femoral Vein Popliteal Vein Small Saphenous Vein * Proximal Calf Veins (* superficial vessels) Right Leg: Negative for DVT, Color Doppler imaging shows patency of the vessels. Spectral waveforms are within normal limits. There is a 0.9x0.6cm shadowing area at patients area of pain at the posterior/medial upper calf. This is intramuscular and does not appear to be a calcification within an artery. Suspect nonspecific sof t tissue calcification. IMPRESSION: No ultrasound evidence for deep venous thrombosis. [facility], , 12/24/2024 7:38 AM
[2024-12-24 08:46] VITALS: BP 124/78
== END 2024-12-24 08:45 | disposition home or self-care (01) ==
LOC: EC 05:47
DX: M79.604 Pain in right leg (principal)
CPT/HCPCS: 36415; 80053; 85025; 85610; 85730; 93971; 99284; 96374; J1885